=== PATIENT | female | born 1950 | race Caucasian/White ===

== ENCOUNTER 2019-01-19 00:16 | Emergency (ER) | payer MEDICARE, OTHER ==
[~2019-01-19] VITALS: Ht 156.2 cm; Wt 59.4 kg
--- NOTE | 2019-01-19 00:41 | ED General ---
General Stated Complaint: SOB Source of Information: Patient Exam Limitations: No Limitations History of Present Illness Date Seen by Provider: Jan 19, 2019 Time Seen by Provider: 00:39 Initial Comments Patient has been sleeping all day for unclear reasons. She woke up tonight and had severe left posterior rib pain. It hurts to cough or move. She has COPD he wears 3 L oxygen by nasal cannula at all times. She continues to smoke. She denies fevers or chills. She says she was well earlier yesterday. Review of Systems Review of Systems Constitutional: no symptoms reported; No fever; malaise Respiratory: cough Cardiovascular: No chest pain Musculoskeletal: back pain Skin: no symptoms reported Psychiatric/Neurological: No Symptoms Reported All Other Systems Reviewed Negative Unless Noted: Yes Past Pypgxna-Dsrrga-Sumhve Hx Patient Social History Recent Foreign Travel: No Contact w/Someone Who Travel: No Physical Exam Vital Signs Vital Signs - First Documented Capillary Refill : Height, Weight, BMI Height: '" Weight: lbs. oz. kg; BMI Method: HEENT: PERRL/EOMI Neck: Full Range of Motion, Supple Respiratory: Lungs Clear, Normal Breath Sounds Cardiovascular: Regular Rate, Rhythm, No Edema Gastrointestinal: Soft Back: Other (tender left posterior ribs, no crepitus) Extremity: Normal Inspection Neurologic/Psychiatric: Alert, No Motor/Sensory Deficits Skin: Normal Color, Warm/Dry Focused Exam Lactate Level 01/19/19 02:20: Lactic Acid Level Laboratory Tests Test 01/19/19 02:20 Progress/Results/Core Measures Suspected Sepsis SIRS Temperature: Pulse: Respiratory Rate: Laboratory Tests 01/19/19 02:20: Blood Pressure / Mean: 01/19/19 02:20: Laboratory Tests 01/19/19 02:20: Results/Orders Lab Results Laboratory Tests Test 01/19/19 02:20 Range/Units My Orders Orders - JACK DOUGLAS MD Ribs/Unilateral With Chest (01/19/19 00:27) Cbc With Automated Diff (01/19/19 00:27) Magnesium (01/19/19 00:27) Ekg Tracing (01/19/19 00:27) Comprehensive Metabolic Panel (01/19/19 00:27) Saline Lock/Iv-Start (01/19/19 00:27) Troponin T (01/19/19 00:27) Lactic Acid Analyzer (01/19/19 00:27) Influenza A And B Antigens (01/19/19 00:27) Vital Signs/I&O 01/19/19 01/19/19 00:35 00:35 Temp 98.9 98.9 Pulse 92 92 Resp 12 12 B/P (MAP) 103/44 (63) 103/44 Pulse Ox 97 97 O2 Delivery Nasal Cannula Nasal Cannula O2 Flow Rate 4.00 4.00 Capillary Refill : Progress Note : Time: 02:21 Progress Note X-ray shows left seventh rib fracture. Findings was discussed with the patient. She is only interested in taking ibuprofen for pain. Oxygen saturations are good on her usual 3 L. Advised to continue with her nebulizer treatments and regular medicines. ECG Initial ECG Impression Date: Jan 19, 2019 Initial ECG Impression Time: 01:38 Initial ECG Rate: 81 Initial ECG Rhythm: Normal Sinus Initial ECG Intervals: Normal Initial ECG Impression: Nonspecific Changes Diagnostic Imaging Diagonstic Imaging: Xray Comments Left seventh rib fracture Departure Impression Primary Impression: Rib fracture Disposition: 01 HOME, SELF-CARE Condition: Stable Departure-Patient Inst. Decision time for Depature: 02:55 Referrals: NO,LOCAL PHYSICIAN (PCP) Primary Care Physician Patient Instructions: Rib Fracture (DC) Add. Discharge Instructions: Take frequent deep breaths and cough. This will keep your lungs expanded. Take ibuprofen for pain. JACK DOUGLAS MD Jan 19, 2019 00:41
[2019-01-19 02:58] LABS: HEMATOCRIT 31 % (35-52); HEMOGLOBIN 9.2 G/DL (11.5-16.0); MEAN CORPUSCULAR HEMOGLOBIN 28 PG (25-34); MEAN CORPUSCULAR VOLUME 95 FL (80-99); WHITE BLOOD COUNT 8.2 10^3/uL (4.3-11.0)
[2019-01-19 02:59] LABS: BASOPHILS % (AUTO) 0 % (0-10); EOSINOPHILS % (AUTO) 0 % (0-10); LYMPHOCYTES # (AUTO) 1.4 X 10^3 (1.0-4.0); LYMPHOCYTES % (AUTO) 17 % (12-44); MEAN CORPUSCULAR HGB CONC 30 G/DL (32-36); MEAN PLATELET VOLUME 10.6 FL (7.4-10.4); MONOCYTES # (AUTO) 0.7 X 10^3 (0.0-1.0); MONOCYTES % (AUTO) 8 % (0-12); NEUTROPHILS # (AUTO) 6.1 X 10^3 (1.8-7.8); NEUTROPHILS % (AUTO) 75 % (42-75); PLATELET COUNT 301 10^3/uL (130-400); RED CELL DISTRIBUTION WIDTH 14.1 % (10.0-14.5)
[2019-01-19 03:08] LABS: ALBUMIN 3.6 GM/DL (3.2-4.5); BILIRUBIN,TOTAL 0.2 MG/DL (0.1-1.0); CALCIUM 10.1 MG/DL (8.5-10.1); POTASSIUM 6.3 MMOL/L (3.6-5.0); TOTAL PROTEIN 6.8 GM/DL (6.4-8.2)
[2019-01-19 03:20] LABS: MAGNESIUM 2.4 MG/DL (1.8-2.4)
[2019-01-19 03:40] VITALS: BP 0/0
--- NOTE | 2019-01-19 06:55 | Diagnostic Imaging Report ---
INDICATION: Cough and left rib pain. Time of exam: 12:56 AM There is a minimally displaced fracture involving the posterior left seventh rib. No other rib fractures are seen. No parenchymal contusion, effusion or pneumothorax is seen. IMPRESSION: Left posterior seventh rib fracture. Dictated by: Dictated on workstation # [id number]
== END 2019-01-19 03:45 | disposition home or self-care (01) ==
LOC: ER FS 00:19
DX: S22.32XA Fracture of one rib, left side, initial encounter for closed fracture (principal); J44.9 Chronic obstructive pulmonary disease, unspecified; Z99.81 Dependence on supplemental oxygen; X58.XXXA Exposure to other specified factors, initial encounter
CPT/HCPCS: 36415; 71101; 80053; 83605; 83735; 84484; 85025; 87804; 93005

== ENCOUNTER 2019-02-06 18:50 | Emergency (ER) | payer MEDICARE, OTHER ==
[~2019-02-06] VITALS: Ht 156.2 cm; Wt 58.1 kg
--- NOTE | 2019-02-06 19:12 | NUR ---
DOCTOR IN WITH THE PATIENT AT THIS TIME.
--- NOTE | 2019-02-06 19:16 | ED Dyspnea ---
General Stated Complaint: SOB History of Present Illness Date Seen by Provider: Feb 06, 2019 Time Seen by Provider: 19:15 Initial Comments 68 yo f hx of copd on home oxygen p/w increasing sob and left posterior rib/ yuniel pain. apparently had seventh rib fracture 01/19 got diagnosed with it, she has not been taking pain medication because she doesnt like the strong stuff. using advil with minimal relief. she reports cough although doesnt know color sputum and also feeling warm but does not know how high fever is. pt apparently had increased sob today so came here RA sat without oxygen in 70' s but came up to 100 on home oxygen of three liters while in emergency room. pain sharp posterior no relief with adil. no abdominal pain positive generalized weakness Allergies and Home Medications Patient Home Medication List Home Medication List Reviewed: Yes Review of Systems Review of Systems Constitutional: chills, malaise Respiratory: cough, dyspnea on exertion Cardiovascular: no symptoms reported Gastrointestinal: no symptoms reported Past Tnyhnxw-Yqdxwv-Gkcgak Hx Past Med/Social Hx: Reviewed Nursing Past Med/Soc Hx Patient Social History Recent Foreign Travel: No Contact w/Someone Who Travel: No Physical Exam Vital Signs Vital Signs - First Documented 02/06/19 19:02 Temp 97.7 Pulse 110 Resp 16 B/P (MAP) 136/43 (74) Pulse Ox 71 O2 Delivery Nasal Cannula O2 Flow Rate 4.00 Capillary Refill : the above is incorrect is was 71 on ra briefly and came right up to 100 on 4 liters Height, Weight, BMI Height: 5'1.50" Weight: 131lbs. oz. 59.930474fb; BMI Method:Stated General Appearance: No Apparent Distress HEENT: PERRL/EOMI Neck: Full Range of Motion Respiratory: Other (ttp of the left posteiror rib area with bony crepitus noted , no subq crepiuts. prolonged expiratory phase faint wheezing noted. pt speaking full sentences. trace edema lower extremity) Gastrointestinal: Non Tender, Soft Neurologic/Psychiatric: Alert, Oriented x3, No Motor/Sensory Deficits Skin: Normal Color, Warm/Dry, Cool Progress/Results/Core Measures Results/Orders My Orders Orders - KIM TALLEY MD Chest Pa/Lat (2 View) (02/06/19 19:34) Vital Signs/I&O 02/06/19 19:02 Temp 97.7 Pulse 110 Resp 16 B/P (MAP) 136/43 (74) Pulse Ox 71 O2 Delivery Nasal Cannula O2 Flow Rate 4.00 Progress Progress Note : Progress Note known copd likely under treated pain rib fracture. IMPRESSION: Mildly displaced fractures of left seventh and ninth ribs. No evidence of pneumothorax or pleural effusion. Dictated on workstation # [id number] Dict: 02/06/192016 Trans: 02/06/192020 SHARLENE [id number] Interpreted by: SUMAN ALEXANDER MD Electronically signed by: noted above unclear in retrospect review if this is new or missed rib fx. neverthelss sat is good on her home oxygen. her pain appears fairly well controolled. rx for pain med, zofran and abx (no obvious pna but pt is high risk and has been dealing with rib fx for two plus weeks now) return prec discussed encoouraged deep breathing exercises. rx rosetta norco and doxycycline Departure Impression Primary Impression: Rib fracture Disposition: 01 HOME, SELF-CARE Condition: Stable Departure-Patient Inst. Referrals: NO,LOCAL PHYSICIAN (PCP) Primary Care Physician Add. Discharge Instructions: please take deep breaths, take pain medicine regularly. return for fever or cough. KIM TALLEY MD Feb 06, 2019 19:15
--- NOTE | 2019-02-06 20:22 | Diagnostic Imaging Report ---
INDICATION: Shortness of breath. Comparison with 01/19/2019. FINDINGS: PA and lateral views. There is mild hyperaeration of the lungs. There are no infiltrates. No evidence of pneumothorax or pleural effusion. The left seventh rib fractures again noted. There also appears to be a fracture along the anterolateral left ninth rib now. Right ribs appear intact. The heart upper limits of normal. There is no pulmonary edema. IMPRESSION: Mildly displaced fractures of left seventh and ninth ribs. No evidence of pneumothorax or pleural effusion. Dictated by: Dictated on workstation # [id number]
[2019-02-06] MEDS ORDERED: DOXY100T2 PO (20:36)
[2019-02-06] MEDS ORDERED: ACHD5005 PO (20:36)
[2019-02-06] MEDS ORDERED: ONDA4TAB11 PO (20:36)
[2019-02-06 20:43] VITALS: BP 135/61
== END 2019-02-06 20:43 | disposition home or self-care (01) ==
LOC: EDUNIT# 18:50 → ER FS 18:52
DX: S22.42XA Multiple fractures of ribs, left side, initial encounter for closed fracture (principal); J44.9 Chronic obstructive pulmonary disease, unspecified; Z99.81 Dependence on supplemental oxygen; X58.XXXA Exposure to other specified factors, initial encounter
CPT/HCPCS: 71046